=== PATIENT | female | born 1955 | race Caucasian/White ===

== ENCOUNTER 2016-11-28 23:52 | Observation (INO) | payer BC ==
--- NOTE | ~2016-11-28 | HP ---
History And Physical [place] [id number] [facility] [place]. [address] NAME: ADALBERTO PENA : 59 STATUS : ADM Sade PAT#: [id number] AGE: 61 ADM/REG DATE : 11/28/16 MR#: [id number] REPORT SERV DATE: 11/29/16 DICTATED BY: SELMA GARCIA DATE: 11/29/16 REPORT STATUS : Draft TRANSCRIBED BY: GISEL DATE: 11/29/16 DATE OF ADMISSION: 11/28/2016 CHIEF COMPLAINT: Atypical chest pain. HISTORY OF PRESENT ILLNESS: A very pleasant 61-year-old white female with no known history of CAD states that on 11/28 around 11 a.m. while sitting at her desk, she developed a sharp midsternal chest discomfort that radiated to her shoulder blades and questionably up towards her left shoulder. She states that she also had a headache with that event. She reports a similar episode one to two weeks prior that she did not take seriously, but after this second event, she thought it prudent to come to the emergency room for further evaluation and treatment. She described some associated shortness of breath and dizziness with position change. Denies nausea, diaphoresis, or belching. There is no exertional component. The patient works out four to five times weekly at the with boot camp and aerobics without incident most recently on 11/28. At its most intense, she rates the chest pain a 3/10. At time of interview in the [facility], she is pain free. The episodes last approximately 20 seconds in duration and come and go per report. The patient denies any personal history of myocardial infarction, stroke, DVT, or pulmonary embolus. The patient denies any recent fever or chills. Describes rare palpitations. Consumes two 8 ounce cups of coffee per day. No syncopal episodes. Denies PND or orthopnea. PAST MEDICAL HISTORY: 1. AODM. 2. Glaucoma. 3. Arthritis. 4. Cholesterol per PCP and reportedly "good.". 5. Denies hypertension or diabetes. PAST SURGICAL HISTORY: Tonsillectomy and wisdom teeth. SOCIAL HISTORY: She is , with two children. She is a home health nurse. Exercises four to six times weekly at the . Denies tobacco or illicits. Occasionally consumes alcohol. FAMILY HISTORY: No embolic events reported in first-degree relatives. Maternal grandfather in his late 50s of a heart attack. REVIEW OF SYSTEMS: A 14-point review of systems performed, significant for HPI including a previous negative Holter several years ago for palpitations. Otherwise, complete review of systems obtained and negative. ALLERGIES: NO KNOWN DRUG ALLERGIES. HOME MEDICATIONS: Hydrochlorothiazide 12.5 mg daily, Mobic 7.5 mg daily, metformin 1000 mg History And Physical [address] [address] NAME: ADALBERTO PENA : [birth year] STATUS : ADM Sade PAT#: [id number] AGE: 61 ADM/REG DATE : 11/28/16 MR#: [id number] REPORT SERV DATE: 11/29/16 DICTATED BY: SELMA GARCIA DATE: 11/29/16 REPORT STATUS : Draft TRANSCRIBED BY: MODL DATE: 11/29/16 twice daily, Betimol drops two drops twice daily left eye, Osteo Bi-Flex daily. PHYSICAL EXAMINATION: VITAL SIGNS: Bilateral blood pressures on arrival, right 120/70, left 120/69, this morning 104/63; pulse 77; respirations 20; temperature 97.9; O2 saturation 96% on room air. Height 5 feet 7 inches, weight 200 pounds, BMI 31.3. GENERAL: Cooperative, in no apparent distress. HEENT: Pupils 2 mm. Sclera nonicteric. Nares patent. Moist mucous membranes. No xanthelasma. NECK: Trachea midline. No thyromegaly. No JVD. No bruits. LYMPH: No cervical lymphadenopathy. No supraclavicular lymphadenopathy. RESPIRATORY: Unlabored respirations. Breath sounds clear bilaterally to posterior auscultation. No wheezes or rhonchi. CARDIOVASCULAR: Regular rate. No murmur, rub, or gallop appreciated. EXTREMITIES: Without edema. Pulses 2+ bilaterally. ABDOMEN: Soft, nontender, nondistended. Normal bowel sounds auscultated throughout. No organomegaly. SKIN: Warm, dry extremities. No pallor or cyanosis. PSYCHIATRIC: Appropriate affect. Alert, oriented x3. LABORATORY DATA: Troponin less than 0.02 x3. Potassium 3.2 (repleted with 40 of K), BUN 18, creatinine 0.63, glucose 99, magnesium 2.2. WBC 9.1, hemoglobin 13.7, hematocrit 39.8, platelet count 333,000. EKG, sinus rhythm and first-degree AV block. Echo, 08/2009, EF 60%, trace tricuspid regurgitation and pulmonic valve regurgitation. ASSESSMENT AND PLAN: 1. Atypical chest pain. The patient has been observed in the CP[facility] overnight to rule out myocardial infarction with serial enzymes and serial EKGs. The patient has been held n.p.o. We will proceed with an MPI today and discharge home if low risk, no ischemia. If anything suggestive of ischemia, Cardiology referral will be initiated. Otherwise, the patient will be asked to follow up with her PCP in one to two weeks with all studies being sent to that office. 2. Adult-onset diabetes mellitus. Hold metformin. Level 1 sliding scale correction. 3. Hypokalemia of 3.2, repleted with 40 of potassium in the ED. Recheck potassium pending. TORRI/GISEL DAVID Hawk, MEDICAL SOCIOLOGIST-BC / [id number] CC: History And Physical [address] [address] NAME: ADALBERTO PENA : 59 STATUS : ADM Sade PAT#: [id number] AGE: 61 ADM/REG DATE : 11/28/16 MR#: [id number] REPORT SERV DATE: 11/29/16 DICTATED BY: SELMA GARCIA DATE: 11/29/16 REPORT STATUS : Draft TRANSCRIBED BY: MODL DATE: 11/29/16 Selma Garcia, MSN, MEDICAL SOCIOLOGIST-BC Allyson Pelletier M.D.
[2016-11-28 20:42] LABS: BASOPHILS 0.4 %; BASOPHILS ABSOLUTE 0.04 10/3/uL (0.0-0.16); EOSINOPHILS 4.6 %; EOSINOPHILS ABSOLUTE 0.42 10/3/uL (0.0-0.53); HEMATOCRIT 39.8 % (36.0-48.0); HEMOGLOBIN 13.7 g/dL (12.0-16.0); IMMATURE GRANULOCYTES 0.1 %; IMMATURE GRANULOCYTES ABSOLUTE 0.01 10/3/uL (0.0-0.11); LYMPHOCYTES 40.4 %; LYMPHOCYTES ABSOLUTE 3.67 10/3/uL (0.67-4.30); MANUAL DIFF NO %; MEAN CORPUS HGB CONC 34.4 g/dL (32.0-36.0); MEAN CORPUSCULAR HEMOGLOB 28.6 pg (26.0-34.0); MEAN CORPUSCULAR VOLUME 83.1 fL (80-100); MEAN PLATELET VOLUME 9.5 fL (9.2-13.0); MONOCYTES ABSOLUTE 0.64 10/3/uL (0.21-1.20); NEUTROPHILS 47.5 %; NEUTROPHILS ABSOLUTE 4.31 10/3/uL (2.02-8.40); PLATELET COUNT 333 10/3/uL (150-400); RBC DISTRIBUTION WIDTH 12.3 % (12.0-16.0); RED CELL COUNT 4.79 10/6/uL (4.0-5.6); WHITE BLOOD CELLS 9.1 10/3/uL (4.5-10.5)
[2016-11-28 20:51] LABS: PARTIAL THROMBO TIME 25.8 SEC (22.5-37.2); PROTIME (NOT ORD) 13.2 SEC (12.0-14.5)
[2016-11-28 20:59] LABS: BUN (BLOOD UREA NITROGEN) 18 MG/DL (6-23); CALCIUM, SERUM 9.2 MG/DL (8.5-10.4); CHEST PAIN PROFILE TAT 0 Hrs 23 Mins; CHLORIDE, SERUM 98 MMOL/L (96-112); CO2 (CARBON DIOXIDE) 31 MMOL/L (24-34); CREATININE 0.63 MG/DL (0.55-1.02); GFR AFRICAN AMERICAN 114 ML/MIN (>=60); GFR NON AFRICAN AMERICAN 98 ML/MIN (>=60); GLUCOSE, SERUM 99 MG/DL (60-99); POTASSIUM, SERUM 3.2 MMOL/L (3.5-5.3); SODIUM, SERUM 136 MMOL/L (135-148); TROPONIN I <0.02 NG/ML (<0.05)
[~2016-11-28 23:52] MED LIST: GLUCPH PO; HCTZ12.5 PO; MOBIC7.5 PO; TIMOLOL OPH
[2016-11-29] MEDS ORDERED: OSTEO BI-FLEX1 EACH PO (14:25)
== END 2016-11-29 14:50 | disposition home or self-care (01) ==
LOC: ER 23:52 → CDU1 23:59
PROVIDERS: Emergency Medicine
DX: R07.89 Other chest pain (principal); E11.8 Type 2 diabetes mellitus with unspecified complications; E87.6 Hypokalemia; H40.9 Unspecified glaucoma; M19.90 Unspecified osteoarthritis, unspecified site; Z90.89 Acquired absence of other organs; Z98.890 Other specified postprocedural states; Z79.899 Other long term (current) drug therapy; Z82.49 Family history of ischemic heart disease and other diseases of the circulatory system
CPT/HCPCS: 71020; 78452; 80048; 82962; 83735; 84132; 84484; 85025; 85610; 85730; 93005; 93017; 99285; A9270-GY; A9502; G0378